=== PATIENT | female | born 1960 | race Caucasian/White ===

== ENCOUNTER 2020-12-28 09:44 | Day surgery (SDC) | payer MEDICARE ==
[~2020-12-28] VITALS: Ht 165.1 cm; Wt 79.1 kg
[~2020-12-28 09:44] MED LIST: CELEBREX200 MG PO; ZANAFLEX4 MG PO
[2020-12-28 10:15] LABS: HEMATOCRIT 42.7 % (36.0-48.0); HEMOGLOBIN 14.3 g/dL (12-16); MCHC 33.5 g/dL (31.0-37.0); MCV 92.4 fL (80.0-100.0); RBC 4.62 10x6/uL (4.00-5.40); RDW 12.4 % (11.5-14.5); WBC 7.1 10x3/uL (4.8-10.8)
[2020-12-28 10:59] VITALS: BP 147/84; Ht 165.1 cm; Wt 79.1 kg
--- NOTE | 2020-12-28 16:34 | NUR ---
DC INSTRUCTIONS GIVEN TO PT. STATES UNDERSTANDING. DC'D IV CATH FULLY INTACT. PT LEFT UNIT VIA AT [id number]
--- NOTE | 2020-12-29 11:54 | OP ---
PATIENT NAME: ACT GODINEZ MEDICAL RECORD: [id number] :60 LOCATION:[facility] ADMISSION DATE: SURGEON: GIDEON SAM DO DATE OF OPERATION: 12/28/2020 PROCEDURE PERFORMED: Right ankle arthroscopy with microfracture of the medial talus. PREOPERATIVE DIAGNOSIS: Osteochondral lesion of the talus. POSTOPERATIVE DIAGNOSIS: Osteochondral lesion of the talus. INDICATIONS: The patient is a 60-year-old female who came to my office with an MRI showing an osteochondral defect of the medial shoulder of the talus and really no other findings on the MRI. I told her we could do a microfracture and see if it would help with the pain, but should be nonweightbearing for 6 weeks. She was aware of the risks of blood clots, infection, bleeding, damage to nerve or vessels, need for further surgery, continued pain, loss of motion of the ankle and blood clots and even and she signed the consent. SURGEON: Gideon Sam DO. DESCRIPTION OF PROCEDURE: The patient was taken to the operative suite, laid in supine position, given a block by anesthesia in preoperative area. Given general anesthetic and LMA was placed. The right lower extremity was then prepped and draped in sterile fashion. A timeout was performed and everyone was in agreement with correct side, site, patient and procedure. I then began by inflating the ankle joint through a medial portal with 10 mL of normal saline and then established a medial portal with an 11-blade scalpel to make the levi incision in the skin. This was just medial to the tibial tendon and it entered the trocar into the joint, then established a lateral portal with a needle and a levi in the skin with an 11-blade scalpel and then a hemostat was brought in to breakthrough. I then brought in a shaver, cleaned up any loose bodies that were in the ankle. I inspected the ankle on the lateral side, she did not have any chondral defects and everything was in good repair; however, the medial side she did have about a 1 cm osteochondral defect on the medial shoulder. I then switched portal sites viewing portal and medial and brought in a power pick and a picked into the OCD lesion. I then also brought in another cannula and a K-wire. A 0.62 K-wire and ran that into the OCD lesion as well, getting some good bleeding bone at the site. I then brought the shaver, cleaned the other loose bodies up and removed all the instruments and closed the portal sites with 4-0 Monocryl in inverted fashion and placed Steri-Strips, Adaptic, 4 x 4, ABDs and cast padding, then put a 4 x 30 splint secured with an Ziggy wrap. She was then awakened and taken to recovery in stable condition. BLOOD LOSS: Minimal. COMPLICATIONS: None. TRANSINT:[id number] Voice Confirmation ID: [id number] DOCUMENT ID: [id number] OPERATIVE REPORT [id number] CAT GODINEZ MICHAEL D, DO at 1154 CC: [id number] DICTATION DATE: 12/28/20 1608 CAGE CLERK: 12/29/20 0049 [facility] 12/28/20 [id number] [place] [address]
--- NOTE | 2020-12-29 17:28 | OP ---
PATIENT NAME: CAT GODINEZ MEDICAL RECORD: [id number] :60 LOCATION:[facility] ADMISSION DATE: SURGEON: GIDEON SAM DO DATE OF OPERATION: 12/28/2020 PROCEDURE PERFORMED: Right ankle arthroscopy with microfracture. PREOPERATIVE DIAGNOSIS: Osteochondral defect of the talus. POSTOPERATIVE DIAGNOSIS: Osteochondral defect of the talus. INDICATIONS: Ms. Godinez is a 60-year-old female who presented to my office with an OCD lesion on MRI on her talus medial side. She did not know what to do and was having a lot of pain. I informed her that we could do a microfracture and hopefully regrow some cartilage or at least help her with the pain. She would be at risk for further fracture, bleeding, damage to nerves or vessels, need for further surgery, continued pain, loss of motion of the ankle joint, blood clots, and even and she signed the consent. SURGEON: Gideon Sam DO DESCRIPTION OF PROCEDURE: The patient received a block by anesthesia in the preoperative area, taken to the operative suite, laid in supine position, given general anesthetic and LMA was placed. She was given 2 grams Ancef. A timeout was performed and everyone was in agreement with correct side, site, patient and procedure. The right lower extremity was then prepped and draped in sterile fashion and then inflated the ankle joint with 10 mL of normal saline through the medial portal. I then established medial portal with an 11 blade scalpel. Trocar was then entered into the joint. I then established lateral portal with a needle and levi incision and then used a hemostat to spread through the soft tissue. I then brought in a shaver, cleaned out any loose bodies. I then switched portals from medial to lateral viewing and looked at the OCD lesion on the medial side. It was approximately 0.5cm x 0.5cm but she was free of any cartilage anterior to that on the talus. I then brought in a power pick and pick through OCD lesion on the ___ area, grade IV chondromalacia of the talus and then a cannula and a ___ K-wire to get deeper into the lesion causing bleeding coming out of it. I then removed all the instruments and closed the portal sites with 4-0 Monocryl in inverted interrupted fashion and then she was dressed with Steri-Strips, Adaptic, 4 x 4, ABD, cast padding, and a 4 x 30 splint secured with an Ziggy wrap. She was awakened and taken to recovery in stable condition. ESTIMATED BLOOD LOSS: Minimal. COMPLICATION: None. TRANSINT:[id number] Voice Confirmation ID: [id number] DOCUMENT ID: [id number] OPERATIVE REPORT [id number] CAT GODINEZ MICHAEL D, DO at 1728 CC: [id number] DICTATION DATE: 12/28/20 1612 GEOINT ANALYST: 12/29/20 0043 [facility] 12/28/20 [facility] [address] [place] [address]
== END 2020-12-28 16:29 | disposition home or self-care (01) ==
LOC: D.OPS 09:44
PROVIDERS: Anesthesiology; ATTEND Orthopaedic Surgery
DX: M21.6X1 Other acquired deformities of right foot (principal); M25.571 Pain in right ankle and joints of right foot

== ENCOUNTER → 2021-03-13 15:51 | Outpatient (CLI) | payer MEDICARE ==
[2020-12-28 10:59] VITALS: BMI 29.0
== END | disposition home or self-care (01) ==
LOC: D.MRI 15:51
PROVIDERS: ATTEND Nurse Practitioner Family
DX: M21.6X1 Other acquired deformities of right foot (principal)